=== PATIENT | male | born 1965 | race Caucasian/White ===

== ENCOUNTER 2016-09-28 14:12 | Outpatient (CLI) | payer OTHER ==
[~2016-09-28 14:12] MED LIST: ASPI-504 PO; GLIM2TAB PO; HYDR-1231 PO; LISI10TA2 PO; MTF500T PO; ROSU5TAB PO
--- OUTSIDE RECORDS SUMMARY | 2016-09-28 14:16 | XMS REPORT | Continuity of Care Document ---
Author Author [facility] Organization [facility] Address Unknown Phone Unavailable Care Team Providers Care Butcher Helper Name Role Phone AMBREEN RUST DO PCP Insurance Providers Payer Name Policy Number Subscriber Name Relationship [employer] [facility] [id number] Vipul Li 18 Self / Same As Patient Advance Directives Directive Response Recorded Date/Time Advance Directives No 04/14/14 3:29am Organ Donor Yes 04/14/14 3:29am Resuscitation Status Full Code 04/14/14 3:29am Problems Medical Problems Problem Onset Date Status Episcleritis of left eye Unknown Active Medications Medication Dose Route Sig Days/Qty Instructions Order Date Discontinued Date Status Lisinopril 20 Mg PO DAILY 11/18/13 Active Rosuvastatin Calcium 1 Each PO DAILY 11/18/13 Active Glimepiride 2 Mg PO DAILY 11/18/13 Active Aspirin 81 Mg PO DAILY 11/18/13 Active Hydrocodone Bit/Acetaminophen 1-2 Tab PO EVERY 6 HOURS PRN PAIN 30 Qty 11/18/13 04/14/14 Discontinued Metformin HCl (Glucophage) 1 Each PO TWICE A DAY WITH MEALS 04/14/14 Active Social History Social History Problem Response Recorded Date/Time Alcohol Use Occasionally Uses 04/14/2014 3:29am Recreational Drug Use No 04/14/2014 3:29am Recent Foreign Travel No 04/14/2014 3:29am Recent Infectious Disease Exposure No 04/14/2014 3:29am Smoking Status Never a Smoker 04/14/2014 3:29am Do you dip or chew tobacco? No 04/14/2014 3:29am Query Response Start Date Stop Date Smoking Status Never a Smoker Hospital Discharge Instructions No hospital discharge instructions. Plan of Care No plan of care. Functional Status No functional status results. Allergies, Adverse Reactions, Alerts Allergen Type Severity Reaction Status Last Updated No Known Drug Allergies Active 11/18/13 Immunizations Name Given Type Tetanus Booster (TDap) Less than 5yrs Historical Vital Signs Acute Vital Signs Vital Response Date/Time Temperature (Fahrenheit) 98.0 degrees F (97.6 - 99.5) Temperature (Calculated Celsius) 36.49320 degrees C (36.4 - 37.5) Temperature Source Temporal Pulse Rate (adult) 96 bpm (60 - 90) Respiratory Rate 16 bpm (12 - 24) O2 Sat by Pulse Oximetry 96 % (88 - 100) Blood Pressure 154/108 mm Hg Pain Pain Intensity 2 Height (Feet) 6 feet Height (Inches) 0 inches Height (Calculated Centimeters) 182.245656 cm Weight (Pounds) 240 pounds Weight (Calculated Kilograms) 108.098467 kilograms Calculated BMI 32.55 Results Test Source Date Result Interp. Ref. Range Comments Alanine Aminotransferase (ALT/SGPT) June 21, 2008 9:47am 69 U/L H 30 -65 Albumin June 21, 2008 9:47am 4.0 G/DL N 3.4-5.0 Alkaline Phosphatase June 21, 2008 9:47am 72 U/L N 50-136 Aspartate Amino Transf (AST/SGOT) June 21, 2008 9:47am 24 U/L N 15- 37 Cholesterol Level June 21, 2008 9:47am 122 MG/DL N -200 Direct Bilirubin June 21, 2008 9:47am 0.1 MG/DL N 0.0-0.30 Fasting Glucose June 21, 2008 9:47am 105 MG/DL N 70-110 HDL Cholesterol June 21, 2008 9:47am 50 MG/DL N 35-60 Indirect Bilirubin June 21, 2008 9:47am 0.4 MG/DL - LDL Cholesterol June 21, 2008 9:47am 64 MG/DL N 0-129 Total Bilirubin June 21, 2008 9:47am 0.5 MG/DL N 0.0-1.0 Total Protein June 21, 2008 9:47am 8.0 G/DL N 6.4-8.2 Triglycerides Level June 21, 2008 9:47am 39 MG/DL N 30.0-150.0 VLDL Cholesterol June 21, 2008 9:47am 8 MG/DL N 5-40 Procedures No known history of procedures. Encounters Encounter Location Date/Time Departed Emergency Room Via [facility] 04/14/14 3:21am Recent Diagnosis
== END 2016-09-28 14:35 ==
LOC: SLEEP 14:12
PROVIDERS: ATTEND Nurse Practitioner Family
DX: G47.50 Parasomnia, unspecified (principal); G47.10 Hypersomnia, unspecified; E11.9 Type 2 diabetes mellitus without complications

== ENCOUNTER 2017-04-21 02:42 | Observation (INO) | payer OTHER ==
[~2017-04-21] VITALS: Ht 180.3 cm; Wt 104.0 kg
[2017-04-21] MEDS ORDERED: NS IV 1000 ML 1,000 ML IV STA (02:59)
[2017-04-21] MEDS ORDERED: ANTACID SUSP 30 ML UDC (MYLANTA) PO ONE (03:00)
[2017-04-21] MEDS ORDERED: ASPIRIN 81 MG CHEW (CHILDREN'S ASA) PO ONE (03:00)
[2017-04-21] MEDS ORDERED: LIDOCAINE 2% VISCOUS 15 ML UDC PO ONE (03:00)
[2017-04-21 03:08] LABS: BASOPHILS # (AUTO) 0.1 10^3/uL (0.0-0.1); BASOPHILS % (AUTO) 0 % (0-10); EOSINOPHILS # (AUTO) 0.5 10^3/uL (0.0-0.3); EOSINOPHILS % (AUTO) 3 % (0-10); LYMPHOCYTES # (AUTO) 2.1 X 10^3 (1.0-4.0); LYMPHOCYTES % (AUTO) 14 % (12-44); MEAN CORPUSCULAR HEMOGLOBIN 30 PG (25-34); MEAN CORPUSCULAR HGB CONC 34 G/DL (32-36); MEAN CORPUSCULAR VOLUME 89 FL (80-99); MEAN PLATELET VOLUME 9.7 FL (7.4-10.4); MONOCYTES # (AUTO) 1.5 X 10^3 (0.0-1.0); MONOCYTES % (AUTO) 10 % (0-12); NEUTROPHILS # (AUTO) 11.2 X 10^3 (1.8-7.8); NEUTROPHILS % (AUTO) 73 % (42-75); PLATELET COUNT 310 10^3/uL (130-400); RED BLOOD COUNT 5.37 10^6/uL (4.35-5.85); RED CELL DISTRIBUTION WIDTH 12.7 % (10.0-14.5); WHITE BLOOD COUNT 15.3 10^3/uL (4.3-11.0)
[2017-04-21 03:09] LABS: PROTHROMBIN TIME PATIENT 12.9 SEC (12.2-14.7)
--- NOTE | 2017-04-21 03:09 | ED Chest Pain ---
General Chief Complaint: Chest Pain Stated Complaint: CHEST PAIN THROUGH TO BACK Source: patient Exam Limitations: no limitations History of Present Illness Time seen by provider: 02:45 Initial Comments Here with report of several days of diarrhea with occasional vomiting. Complains of low chest/epigastric pain that goes through to his back. Onset earlier this evening and wax and waned. Became quite severe about an hour ago and woke him up. Reports the hospital with the pain is improving. States he has not ate or drank much over the last few days due to GI upset and diarrhea. Timing/Duration: 1-3 hours Severity/Quality: moderate, aching, burning, dull Location: central Radiation: back, epigastric Activities at Onset: none Prior CP/Workup: no prior chest pain, no prior cardiac workup Modifying Factors: improves with rest ASA po SENIOR C SOFTWARE DEVELOPER: No NTG SL SENIOR C SOFTWARE DEVELOPER: No Associated Symptoms: abdominal pain, back pain, No fever/chills, No headache, nausea/vomiting, shortness of breath, No weakness Allergies and Home Medications Allergies Coded Allergies: No Known Drug Allergies (Unverified , 11/18/13) Home Medications Aspirin 81 Mg Tab.chew, 81 MG PO DAILY, (Reported) Glimepiride 2 Mg Tablet, 2 MG PO DAILY, (Reported) Lisinopril 10 Mg Tablet, 20 MG PO DAILY, (Reported) Metformin Hcl 500 Mg Tablet, 1 EACH PO BID WITH MEALS, (Reported) Rosuvastatin Calcium 5 Mg Tablet, 1 EACH PO DAILY, (Reported) Review of Systems Constitutional: see HPI, No chills, No fever Respiratory: See HPI, Shortness of Air, Denies Wheezing Cardiovascular: See HPI, Chest Pain Gastrointestinal: Diarrhea, Nausea, Vomiting Genitourinary: No Symptoms Reported Musculoskeletal: no symptoms reported All Other Systems Reviewed Negative Unless Noted: Yes Past Fkzllbm-Apbdus-Fvgrkx Hx Patient Social History Alcohol Use: Rarely Uses Recreational Drug Use: No Smoking Status: Never a Smoker Recent Foreign Travel: No Contact w/Someone Who Travel: No Immunizations Up To Date Tetanus Booster (TDap): Less than 5yrs Surgeries History of Surgeries: Yes Surgeries: Gallbladder Respiratory History of Respiratory Disorde: No Cardiovascular History of Cardiac Disorders: No Genitourinary History of Genitourinary Disor: No Gastrointestinal History of Gastrointestinal Di: Yes Gastrointestinal Disorders: Gall Bladder Disease Musculoskeletal History of Musculoskeletal Dis: No Endocrine History of Endocrine Disorders: Yes Endocrine Disorders: Diabetes, Non-Insulin dep Reviewed Nursing Assessment Reviewed/Agree w Nursing PMH: Yes Family Medical History Significant Family History: No Pertinent Family Hx Physical Exam Vital Signs Vital Sign - Last 12Hours 04/21/17 02:43 Temp 98.1 Pulse 105 Resp 20 B/P (MAP) 108/71 Pulse Ox 97 O2 Delivery Room Air Capillary Refill : General Appearance: WD/WN, Mild Distress HEENT: PERRL/EOMI, Normal ENT Inspection Neck: Non Tender, Supple Respiratory: Lungs Clear, Normal Breath Sounds Cardiovascular: No Murmur, Tachycardia Gastrointestinal: Non Tender, Soft Extremity: Normal Range of Motion, Non Tender Neurologic/Psychiatric: Alert, Oriented x3 Skin: Normal Color, Warm/Dry Progress/Results/Core Measures Results/Orders Lab Results Laboratory Tests Test 04/21/17 02:52 Range/Units White Blood Count 15.3 H 4.3-11.0 10^3/uL Red Blood Count 5.37 4.35-5.85 10^6/uL Hemoglobin 16.3 13.3-17.7 G/DL Hematocrit 48 40-54 % Mean Corpuscular Volume 89 80-99 FL Mean Corpuscular Hemoglobin 30 25-34 PG Mean Corpuscular Hemoglobin Concent 34 32-36 G/DL Red Cell Distribution Width 12.7 10.0-14.5 % Platelet Count 310 130-400 10^3/uL Mean Platelet Volume 9.7 7.4-10.4 FL Neutrophils (%) (Auto) 73 42-75 % Lymphocytes (%) (Auto) 14 12-44 % Monocytes (%) (Auto) 10 0-12 % Eosinophils (%) (Auto) 3 0-10 % Basophils (%) (Auto) 0 0-10 % Neutrophils # (Auto) 11.2 H 1.8-7.8 X 10^3 Lymphocytes # (Auto) 2.1 1.0-4.0 X 10^3 Monocytes # (Auto) 1.5 H 0.0-1.0 X 10^3 Eosinophils # (Auto) 0.5 H 0.0-0.3 10^3/uL Basophils # (Auto) 0.1 0.0-0.1 10^3/uL Prothrombin Time 12.9 12.2-14.7 SEC INR Comment 1.0 0.8-1.4 Activated Partial Thromboplast Time 28 24-35 SEC D-Dimer 1.00 H 0.00-0.49 UG/ML Sodium Level 134 L 135-145 MMOL/L Potassium Level 4.9 3.6-5.0 MMOL/L Chloride Level 105 98-107 MMOL/L Carbon Dioxide Level 16 L 21-32 MMOL/L Anion Gap 13 5-14 MMOL/L Blood Urea Nitrogen 38 H 7-18 MG/DL Creatinine 1.61 H 0.60-1.30 MG/DL Estimat Glomerular Filtration Rate 46 BUN/Creatinine Ratio 24 Glucose Level 193 H 70-105 MG/DL Calcium Level 9.3 8.5-10.1 MG/DL Magnesium Level 1.4 L 1.8-2.4 MG/DL Total Bilirubin 0.9 0.1-1.0 MG/DL Aspartate Amino Transf (AST/SGOT) 13 5-34 U/L Alanine Aminotransferase (ALT/SGPT) 22 0-55 U/L Alkaline Phosphatase 91 40-136 U/L Myoglobin 78.7 10.0-92.0 NG/ML Troponin I < 0.30 <0.30 NG/ML Total Protein 8.1 6.4-8.2 GM/DL Albumin 4.2 3.2-4.5 GM/DL Amylase Level 71 25-125 U/L Lipase 95 H 8-78 U/L My Orders Orders - RAPHAEL HERNANDEZ MD Cbc With Automated Diff (04/21/17 02:59) Magnesium (04/21/17 02:59) Chest 1 View, Ap/Pa Only (04/21/17 02:59) Ekg Tracing (04/21/17 02:59) Cardiac Profile 1 (04/21/17 02:59) Comprehensive Metabolic Panel (04/21/17 02:59) Myoglobin Serum (04/21/17 02:59) Protime With Inr (04/21/17 02:59) Partial Thromboplastin Time (04/21/17 02:59) O2 (04/21/17 02:59) Monitor-Rhythm Ecg Trace Only (04/21/17 02:59) Lipid Panel (04/22/17 06:00) Aspirin Chewable Tablet (Baby Aspirin Ch (04/21/17 03:00) Saline Lock/Iv-Start (04/21/17 02:59) Lipase (04/21/17 02:59) Amylase (04/21/17 02:59) Fibrin Degradation Products (04/21/17 02:59) Lidocaine 2% Viscous 15 Ml (Xylocaine Vi (04/21/17 03:00) Ns Iv 1000 Ml (Sodium Chloride 0.9%) (04/21/17 02:59) Antacid Suspension (Mylanta Suspension (04/21/17 03:00) Enoxaparin Injection (Lovenox Injection) (04/21/17 04:15) Medications Given in ED Current Medications Medications Dose Ordered Sig/Vanita Route Start Time Stop Time Status Last Admin Dose Admin Al Hydrox/Mg Hydrox/Simethicone 30 ml ONCE ONCE PO 04/21/17 03:00 04/21/17 03:02 DC 04/21/17 03:19 30 ML Aspirin 324 mg ONCE ONCE PO 04/21/17 03:00 04/21/17 03:02 DC 04/21/17 03:20 324 MG Enoxaparin Sodium 100 mg ONCE ONCE SC 04/21/17 04:15 04/21/17 04:16 DC 04/21/17 04:19 100 MG Lidocaine HCl 15 ml ONCE ONCE PO 04/21/17 03:00 04/21/17 03:02 DC 04/21/17 03:19 15 ML Vital Signs/I&O Vital Sign - Last 12Hours 04/21/17 04/21/17 02:43 02:43 Temp 98.1 Pulse 105 Resp 20 B/P (MAP) 108/71 Pulse Ox 97 O2 Delivery Room Air Room Air Progress Note : Progress Note Seen and evaluated. IV, labs, EKG and chest x-ray ordered. ASA 324 mg by mouth. GI cocktail ordered. Monitor patient. Pain is markedly improved after GI cocktail. 0414: D-dimer is elevated but so is serum creatinine. Has findings of acute renal failure which is likely related to dehydration from vomiting and diarrhea. Patient did receive 1 L of normal saline and heart rate has not decreased much remains in the 90s. Still concerns for PE and d-dimer did not decrease this concerned. Unable to do a CT angiogram due to elevated serum creatinine. Patient also presented with chest pain. Troponin is negative. Due to all these concerns, patient will need to be admitted for further evaluation and monitoring for improvement of renal function. To mitigate PE concerns, Lovenox 1 mg/kg IM given times one now and we will get a VQ scan in the morning. Serial testing related to chest pain will be performed. We will continue fluids IV and maintain patient on clear liquid diet. Protonix 40 mg IV ordered due to reflux concerns. Patient did have mild elevation of lipase which is likely related to the vomiting and diarrhea but will be monitored. All findings and concerns discussed with Dr. Hawkins who agrees. Patient and family informed and agree with plan. 0440: Patient and family nonformulary that they do have an established relationship with Dr. Love and not just the [facility]. I will transfer the admission over to Dr. Love. 0450: I did discuss the case with Dr. Love and he agrees to all of the above plan. He will get VQ scan between 10 a.m. and noon today. Single dose Lovenox coverage will be adequate until VQ scan results are noted. ECG Initial ECG Impression Date: Apr 21, 2017 Initial ECG Impression Time: 02:47 Initial ECG Rate: 96 Initial ECG Rhythm: S.Tach Comment Sinus tachycardia with rate of 96. Normal axis. No evidence of ST elevation HI. No previous available for comparison. Interpreted by me. Diagnostic Imaging Diagonstic Imaging: Xray Plain Films/CT/US/NM/MRI: chest Comments No acute findings Departure Communication (Admissions) Time/Spoke to Admitting Phy: 04:14 Impression Impression: Primary Impression: Chest pain Qualified Codes: R07.9 - Chest pain, unspecified Additional Impressions: Acute renal failure Qualified Codes: N17.9 - Acute kidney failure, unspecified Dehydration Elevated d-dimer Disposition: ADMITTED INPATIENT Condition: Stable Admissions Decision to Admit Reason: Admit from ER (General) Decision to Admit/Date: Apr 21, 2017 Time/Decision to Admit Time: 04:14 Departure-Patient Inst. Referrals: OTHER,UNLISTED (PCP) Primary Care Physician SEAN WAGNER APRN (Family) Primary Care Physician RAPHAEL HERNANDEZ MD Apr 21, 2017 03:09
[2017-04-21 03:22] LABS: ALANINE AMINOTRANSFERASE 22 U/L (0-55); ALBUMIN 4.2 GM/DL (3.2-4.5); AMYLASE 71 U/L (25-125); ANION GAP 13 MMOL/L (5-14); ASPARTATE AMINO TRANSFERASE 13 U/L (5-34); BILIRUBIN,TOTAL 0.9 MG/DL (0.1-1.0); BLOOD UREA NITROGEN 38 MG/DL (7-18); BUN/CREATININE RATIO 24; CALCIUM 9.3 MG/DL (8.5-10.1); CARBON DIOXIDE 16 MMOL/L (21-32); CHLORIDE 105 MMOL/L (98-107); CREATININE SERUM 1.61 MG/DL (0.60-1.30); GFR ESTIMATED 46; GLUCOSE 193 MG/DL (70-105); LIPASE 95 U/L (8-78); MAGNESIUM 1.4 MG/DL (1.8-2.4); POTASSIUM 4.9 MMOL/L (3.6-5.0); SODIUM 134 MMOL/L (135-145); TOTAL PROTEIN 8.1 GM/DL (6.4-8.2)
[2017-04-21 03:29] LABS: MYOGLOBIN SERUM 78.7 NG/ML (10.0-92.0)
[2017-04-21] MEDS ORDERED: ENOXAPARIN 100 MG/1 ML (LOVENOX) SYR SC ONE (04:15)
[2017-04-21 05:18] VITALS: BP 117/66
[2017-04-21] MEDS ORDERED: NITROGLYCERIN SUBLINGUAL 0.4 MG TAB (NITROSTAT) SL PRN (05:45)
[2017-04-21] MEDS ORDERED: ONDANSETRON 4 MG/2 ML (SDV) Z0FRAN IV PRN (05:45)
[2017-04-21] MEDS ORDERED: morphine INJ 4 MG/ML 1 ML (VIAL/SYRINGE) IV PRN (05:45)
[2017-04-21] MEDS: NS IV 1000 ML 1,000 ML IV SCH ×3 (05:53→19:38)
--- NOTE | 2017-04-21 07:28 | Diagnostic Imaging Report ---
INDICATION: Chest pain. COMPARISON: None. FINDINGS: Upright portable view of the chest is obtained. Heart size is normal. The pulmonary vessels appear unremarkable. There is no pneumothorax, mediastinal widening or pleural fluid. Lungs are clear. IMPRESSION: Negative chest. Dictated by: Dictated on workstation # [id number]
[2017-04-21 08:00] VITALS: BP 127/90
--- NOTE | 2017-04-21 08:15 | History & Physicial ---
History of Present Illness History of Present Illness Reason for visit/HPI patient came out to the emergency room due to having chest pain. Chest pain woke him at 2 o'clock in the morning and had a hard time breathing . Since last Monday patient has been having diarrhea. Patient also had a few episodes of vomiting. Patient is a known diabetic, hyperlipidemia and hypertension. Patient admitted Date of Admission Apr 21, 2017 at 4:18 am Time Seen by Provider: 08:10 I consulted on this patient on 04/21/17 08:11 Attending Physician Fabián Rust DO Admitting Physician Other,Unlisted Consult Allergies and Home Medications Allergies Coded Allergies: No Known Drug Allergies (Unverified , 11/18/13) Home Medications Aspirin 81 Mg Tab.chew, 81 MG PO DAILY, (Reported) Glimepiride 2 Mg Tablet, 2 MG PO DAILY, (Reported) Lisinopril 10 Mg Tablet, 20 MG PO DAILY, (Reported) Metformin Hcl 500 Mg Tablet, 1 EACH PO BID WITH MEALS, (Reported) Rosuvastatin Calcium 5 Mg Tablet, 1 EACH PO DAILY, (Reported) Past Iafkipj-Firhpl-Rrkost Hx Patient Social History Marrital Status: Employed/Student: employed Alcohol Use: Occasionally Uses Number of Drinks Today: 1 Alcohol Beverage of Choice: Wine Recreational Drug Use: No Smoking Status: Never a Smoker 2nd Hand Smoke Exposure: No Physical Abuse Screen: No Sexual Abuse: No Recent Foreign Travel: No Contact w/other who traveled: Yes Recent Hopitalizations: No Recent Infectious Disease Expo: No Immunizations Up To Date Tetanus Booster (TDap): Less than 5yrs Pediatric: No Seasonal Allergies Seasonal Allergies: No Surgeries Yes Gallbladder Respiratory No Cardiovascular Yes Hypertension Neurological No Genitourinary No Gastrointestinal No Gall Bladder Disease Musculoskeletal No Endocrine History of Endocrine Disorders: Yes Endocrine Disorders: Diabetes, Non-Insulin dep Are Your Blood Sugars Over 250: No HEENT History of HEENT Disorders: No Cancer No Psychosocial History of Psychiatric Problem: No Integumentary History of Skin or Integumenta: No Blood Transfusions History of Blood Disorders: No Adverse Reaction to a Blood Tr: No Reviewed Nursing Assessment Reviewed/Agree w Nursing PMH: Yes Family Medical History Significant Family History: No Pertinent Family Hx Family Hx: Patient reports no known family medical history. Constitutional: no symptoms reported EENTM: no symptoms reported Respiratory: other (difficulty in breathing) Cardiovascular: chest pain Gastrointestinal: diarrhea, other (some vomiting) Genitourinary: no symptoms reported Physical Exam Vital Signs Vital Sign - Last 12Hours 04/21/17 02:43 Temp 98.1 Pulse 105 Resp 20 B/P (MAP) 108/71 Pulse Ox 97 O2 Delivery Room Air Capillary Refill : Less Than 3 Seconds General Appearance: No Apparent Distress, WD/WN Eyes: Bilateral Eye Normal Inspection HEENT: Normal ENT Inspection Neck: Full Range of Motion, Normal Inspection, Non Tender Respiratory: Chest Non Tender, No Accessory Muscle Use, No Respiratory Distress Cardiovascular: Regular Rate, Rhythm, No Murmur Gastrointestinal: Non Tender, Soft Assessment/Plan Assessment and Plan chest pain. Acute renal failure. Dehydration. Diarrhea. Elevated d-dimer Problems: Clinical Quality Measures AMI/AHF: ASA po Prior to arrival: No DVT/VTE Risk/Contraindication: Risk Factor Score Per Nursin RFS Level Per Nursing on Admit: 3=High FABIÁN RUST DO Apr 21, 2017 8:15 am
[2017-04-21 08:59] LABS: MEAN PLATELET VOLUME 9.7 FL (7.4-10.4); RED BLOOD COUNT 5.04 10^6/uL (4.35-5.85); RED CELL DISTRIBUTION WIDTH 12.9 % (10.0-14.5); WHITE BLOOD COUNT 10.6 10^3/uL (4.3-11.0)
[2017-04-21] MEDS: ASPIRIN E.C. 325 MG (ECOTRIN) TABLET PO SCH (09:08)
[2017-04-21] MEDS: PANTOPRAZOLE 40 MG/10 ML (PROTONIX) VIAL IV SCH (09:08)
[2017-04-21 09:27] LABS: ANION GAP 9 MMOL/L (5-14); BLOOD UREA NITROGEN 33 MG/DL (7-18); BUN/CREATININE RATIO 27; CALCIUM 8.4 MG/DL (8.5-10.1); CARBON DIOXIDE 17 MMOL/L (21-32); CHLORIDE 109 MMOL/L (98-107); CREATININE SERUM 1.23 MG/DL (0.60-1.30); GFR ESTIMATED > 60; GLUCOSE 108 MG/DL (70-105); POTASSIUM 4.5 MMOL/L (3.6-5.0); SODIUM 135 MMOL/L (135-145)
[2017-04-21] MEDS ORDERED: ROSU20TA28 PO (09:42)
[2017-04-21] MEDS ORDERED: METO-333 PO (09:42)
[2017-04-21] MEDS ORDERED: LISI-552 PO (09:42)
[2017-04-21] MEDS ORDERED: LIRA0.6P SC (09:42)
[2017-04-21] MEDS ORDERED: METF1000 PO (09:47)
[2017-04-21] MEDS ORDERED: DIPH1TAB25 PO (09:47)
--- NOTE | 2017-04-21 09:51 | Consultation-Cardiology ---
HPI-Cardiology Cardiology Consultation Date of Consultation 04/21/17 Date of Admission Time Seen by Provider: 09:47 Indication: Chest pain HPI 51 years old gentleman with history of hypertension, hyperlipidemia and diabetes mellitus. Was in his usual state of health, for the last week he has been having diarrhea and GI upset, around 2 in the morning woke up with lower retrosternal chest pain and upper epigastric pain was persistent associated with shortness of breath. Came into the emergency room and improved. No nausea or vomiting. No further episode of pain. Currently feeling better, denied any abdominal pain or chest pain. No similar episode in the past. Denied any dizziness or lightheadedness. No syncope. Home Medications & Allergies Allergies: Coded Allergies: No Known Drug Allergies (Unverified , 11/18/13) Home Medication List Reviewed: Yes BIZ-Wxhsmn-Aygrtt Hx Patient Social History Marital Status: Employed/Student: employed Alcohol Use: Occasionally Uses Recreational Drug Use: No Smoking Status: Never a Smoker 2nd Hand Smoke Exposure: No Recent Foreign Travel: No Recent Infectious Disease Expo: No Recent Hopitalizations: No Physical Abuse Screen: No Sexual Abuse: No Immunizations Up To Date Tetanus Booster (TDap): Less than 5yrs Past Medical History past medical history as discussed below Family Medical History Significant Family History: No Pertinent Family Hx Family History: Patient reports no known family medical history. Constitutional: see HPI, malaise EENTM: see HPI, no symptoms reported Respiratory: see HPI, No cough, No dyspnea on exertion, No hemoptysis, No orthopnea, No phlegm, short of breath, No stridor, No wheezing, No other Cardiovascular: see HPI, chest pain, No edema, No Hx of Intervention, No palpitations, No syncope, No vascular heart diseas, No other Gastrointestinal: see HPI, abdominal pain, diarrhea Genitourinary: no symptoms reported, see HPI Musculoskeletal: see HPI Skin: no symptoms reported, see HPI Psychiatric/Neurological: No Symptoms Reported, See HPI Reviewed Test Results Reviewed Test Results Lab Laboratory Tests Test 04/21/17 02:52 04/21/17 08:46 Range/Units White Blood Count 15.3 H 10.6 4.3-11.0 10^3/uL Red Blood Count 5.37 5.04 4.35-5.85 10^6/uL Hemoglobin 16.3 15.4 13.3-17.7 G/DL Hematocrit 48 46 40-54 % Mean Corpuscular Volume 89 90 80-99 FL Mean Corpuscular Hemoglobin 30 31 25-34 PG Mean Corpuscular Hemoglobin Concent 34 34 32-36 G/DL Red Cell Distribution Width 12.7 12.9 10.0-14.5 % Platelet Count 310 258 130-400 10^3/uL Mean Platelet Volume 9.7 9.7 7.4-10.4 FL Neutrophils (%) (Auto) 73 42-75 % Lymphocytes (%) (Auto) 14 12-44 % Monocytes (%) (Auto) 10 0-12 % Eosinophils (%) (Auto) 3 0-10 % Basophils (%) (Auto) 0 0-10 % Neutrophils # (Auto) 11.2 H 1.8-7.8 X 10^3 Lymphocytes # (Auto) 2.1 1.0-4.0 X 10^3 Monocytes # (Auto) 1.5 H 0.0-1.0 X 10^3 Eosinophils # (Auto) 0.5 H 0.0-0.3 10^3/uL Basophils # (Auto) 0.1 0.0-0.1 10^3/uL Prothrombin Time 12.9 12.2-14.7 SEC INR Comment 1.0 0.8-1.4 Activated Partial Thromboplast Time 28 24-35 SEC D-Dimer 1.00 H 0.00-0.49 UG/ML Sodium Level 134 L 135 135-145 MMOL/L Potassium Level 4.9 4.5 3.6-5.0 MMOL/L Chloride Level 105 109 H 98-107 MMOL/L Carbon Dioxide Level 16 L 17 L 21-32 MMOL/L Anion Gap 13 9 5-14 MMOL/L Blood Urea Nitrogen 38 H 33 H 7-18 MG/DL Creatinine 1.61 H 1.23 0.60-1.30 MG/DL Estimat Glomerular Filtration Rate 46 > 60 BUN/Creatinine Ratio 24 27 Glucose Level 193 H 108 H 70-105 MG/DL Calcium Level 9.3 8.4 L 8.5-10.1 MG/DL Magnesium Level 1.4 L 1.8-2.4 MG/DL Total Bilirubin 0.9 0.1-1.0 MG/DL Aspartate Amino Transf (AST/SGOT) 13 5-34 U/L Alanine Aminotransferase (ALT/SGPT) 22 0-55 U/L Alkaline Phosphatase 91 40-136 U/L Myoglobin 78.7 10.0-92.0 NG/ML Troponin I < 0.30 <0.30 NG/ML Total Protein 8.1 6.4-8.2 GM/DL Albumin 4.2 3.2-4.5 GM/DL Amylase Level 71 25-125 U/L Lipase 95 H 8-78 U/L Physical Exam Vital Signs Vital Sign - Last 12Hours 04/21/17 02:43 Temp 98.1 Pulse 105 Resp 20 B/P (MAP) 108/71 Pulse Ox 97 O2 Delivery Room Air Capillary Refill : Less Than 3 Seconds General Appearance: No Apparent Distress, WD/WN Eyes: Bilateral Eye Normal Inspection, Bilateral Eye PERRL, Bilateral Eye EOMI HEENT: PERRL/EOMI, TMs Normal, Normal ENT Inspection, Pharynx Normal Neck: Full Range of Motion, Normal Inspection, Non Tender, Supple, Carotid Bruit Respiratory: Chest Non Tender, Lungs Clear, Normal Breath Sounds, No Accessory Muscle Use, No Respiratory Distress Cardiovascular: Regular Rate, Rhythm, No Edema, No Gallop, No JVD, No Murmur, Normal Peripheral Pulses Gastrointestinal: Normal Bowel Sounds, No Organomegaly, No Pulsatile Mass, Non Tender, Soft Back: Normal Inspection, No CVA Tenderness, No Vertebral Tenderness Extremity: Normal Capillary Refill, Normal Inspection, Normal Range of Motion, Non Tender, No Calf Tenderness, No Pedal Edema Neurologic/Psychiatric: Alert, Oriented x3, No Motor/Sensory Deficits, Normal Mood/Affect Skin: Normal Color, Warm/Dry Lymphatic: No Adenopathy A/P-Cardiology Admission Diagnosis Chest pain, nonspecific etiology Hypertension Hyperlipidemia Diabetes mellitus Assessment/Plan Chest pain nonspecific etiology, atypical in presentation, multiple risk factors for coronary artery disease, cardiac enzymes were normal. I will evaluate exercise stress test and echocardiogram. Hypertension, controlled, restart home medication monitor blood pressure Hyperlipidemia, keep on hold for now while having GI upset. Need to be restarted on his lipid medicine Diabetes mellitus, followed and managed by primary care physician Diarrhea for the last week. Some electrolyte abnormality especially with hypomagnesemia, replace magnesium and monitor closely. Mild elevation lipase level, normal amylase. Currently asymptomatic. Continue to monitor Clinical Quality Measures AMI/AHF: ASA po Prior to arrival: No DVT/VTE Risk/Contraindication: Risk Factor Score Per Nursin RFS Level Per Nursing on Admit: 3=High VIOLETA CONTRERAS MD Apr 21, 2017 09:51
[2017-04-21 12:00] VITALS: BP 123/72
[2017-04-21] MEDS: MAGNESIUM 1 GM/100 ML IVPB 100 ML IV SCH ×2 (13:02→14:43)
--- NOTE | 2017-04-21 13:04 | Diagnostic Imaging Report ---
INDICATION: Elevated D-dimer. Ventilation/perfusion lung scan. 40.6 mCi of Tc99m DTPA was used for the ventilation scan. 5.32 mCi of Tc99m MAA was used for the perfusion scan. There is homogeneous activity in both lungs on ventilation and perfusion phases of the study. IMPRESSION: Negative ventilation/perfusion lung scan. Dictated by: Dictated on workstation # [id number]
[2017-04-21 16:00] VITALS: BP 99/71
[2017-04-21 20:00] VITALS: BP 104/68
[2017-04-21 22:27] VITALS: BP 104/68
[2017-04-22] VITALS: BP 95/62
[2017-04-22] MEDS: NS IV 1000 ML 1,000 ML IV SCH ×2 (02:30→06:17)
[2017-04-22 04:00] VITALS: BP 97/55
[2017-04-22 06:38] LABS: MEAN PLATELET VOLUME 9.8 FL (7.4-10.4); RED BLOOD COUNT 4.69 10^6/uL (4.35-5.85); RED CELL DISTRIBUTION WIDTH 12.7 % (10.0-14.5)
[2017-04-22 06:51] LABS: AMYLASE 65 U/L (25-125); CHOLESTEROL 82 MG/DL (< 200); DIRECT LDL 44 MG/DL (1-129); LIPASE 100 U/L (8-78); TRIGLYCERIDES 102 MG/DL (<150); VLDL CHOLESTEROL 20 MG/DL (5-40)
[2017-04-22 06:53] LABS: ALANINE AMINOTRANSFERASE 18 U/L (0-55); ALBUMIN 3.4 GM/DL (3.2-4.5); ANION GAP 7 MMOL/L (5-14); ASPARTATE AMINO TRANSFERASE 9 U/L (5-34); BILIRUBIN,TOTAL 0.7 MG/DL (0.1-1.0); BLOOD UREA NITROGEN 23 MG/DL (7-18); BUN/CREATININE RATIO 25; CALCIUM 8.1 MG/DL (8.5-10.1); CARBON DIOXIDE 19 MMOL/L (21-32); CHLORIDE 109 MMOL/L (98-107); CREATININE SERUM 0.93 MG/DL (0.60-1.30); GFR ESTIMATED > 60; GLUCOSE 110 MG/DL (70-105); POTASSIUM 4.2 MMOL/L (3.6-5.0); SODIUM 135 MMOL/L (135-145); TOTAL PROTEIN 6.3 GM/DL (6.4-8.2)
[2017-04-22 08:00] VITALS: BP 121/76
[2017-04-22] MEDS: PANTOPRAZOLE 40 MG/10 ML (PROTONIX) VIAL IV SCH (09:32)
[2017-04-22] MEDS: ASPIRIN E.C. 325 MG (ECOTRIN) TABLET PO SCH (09:32)
--- NOTE | 2017-04-22 11:13 | Progress Note-Hospitalist ---
Progress Note Progress Notes/Assess & Plan Date Seen 04/22/17 Time Seen by Provider: 10:45 Diagonsis/Assessment & Plan Pt feels much better since the IVF given and renal insufficiency has resolved. He does have Lomotil at home that he takes and having no new issues with that We counseled him on maintenance of oral fluids to prevent dehydration again No fever, vital signs stable, pleasant Regular rate rhythm, clear to auscultation bilaterally No edema Family bedside Assessment: Chest pain of uncertain etiology but noncardiac in origin we'll follow-up with Dr. 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
--- NOTE | 2017-04-22 11:23 | Cardiology Progress Note ---
Subjective Date Seen by Provider: Apr 22, 2017 Time Seen by Provider: 11:21 Subjective/Events-last exam patient is laying down in bed, feeling better, still having some loose stool, about 2 bowel movements today. No abdominal pain or chest pain Review of Systems General: No Chills, No Night Sweats, No Fatigue, No Malaise, No Appetite, No Other HEENT: No Head Aches, No Visual Changes, No Eye Pain, No Ear Pain, No Dysphasia , No Sinus Congestion, No Post Nasal Drip, No Sore Throat, No Other Pulmonary: No Dyspnea, No Cough, No Pleuritic Chest Pain, No Other Cardiovascular: No: Chest Pain, Palpitations, Orthopnea, Paroxysmal Noc. Dyspnea, Edema, Lt Headedness, Other Objective-Cardiology Exam Last Set of Vital Signs Vital Signs 04/22/17 08:00 Temp 96.4 Pulse 93 Resp 18 B/P (MAP) 121/76 Pulse Ox 98 O2 Delivery Room Air Capillary Refill : Less Than 3 Seconds I&O Intake and Output 04/23/17 00:00 Intake Total 1200 ml Balance 1200 ml Intake Oral 200 ml IV Total 1000 ml # Voids 2 General: Alert, Oriented X3, Cooperative HEENT: Atraumatic, PERRLA Neck: Supple, No JVD, No Thyromegaly Lungs: Clear to Auscultation, Normal Air Movement Heart: Regular Rate, Normal S1, Normal S2, No Murmurs Abdomen: Normal Bowel Sounds, Soft, No Tenderness, No Hepatosplenomegaly, No Masses Extremities: No Clubbing, No Cyanosis, No Edema, Normal Pulses, No Tenderness/ Swelling Skin: No Rashes, No Breakdown, No Significant Lesion Neuro: Normal Gait, Normal Speech, Strength at 5/5 X4 Ext, Normal Tone, Sensation Intact Psych/Mental Status: Mental Status NL, Mood NL Results Lab Laboratory Tests 04/22/17 06:20 A/P-Cardiology Admission Diagnosis Chest pain, nonspecific etiology Hypertension Hyperlipidemia Diabetes mellitus Assessment/Plan Chest pain nonspecific etiology, atypical in presentation, exercise stress echo showed good exercise tolerance for a total of 9 minutes and 30 seconds on standard [place] protocol. No EKG changes and normal echocardiographic images at rest and with peak stress level. Patient was reassured. Chest pain is probably noncardiac in nature Hypertension, controlled, Continue on current medications and monitor Hyperlipidemia, keep on hold for now while having GI upset. Diabetes mellitus, followed and managed by primary care physician Diarrhea for the last week. Some electrolyte abnormality especially with hypomagnesemia, better today. Continue to monitor. Acute renal insufficiency secondary to dehydration, improved with IV fluid. Continue to monitor Mild elevation lipase level, normal amylase, probably secondary to gastroenteritis. Currently asymptomatic. Continue to monitor Clinical Quality Measures AMI/AHF: ASA po Prior to arrival: No DVT/VTE Risk/Contraindication: Risk Factor Score Per Nursin RFS Level Per Nursing on Admit: 3=High VIOLETA CONTRERAS MD Apr 22, 2017 11:23
[2017-04-22 11:52] VITALS: BP 121/76
--- NOTE | 2017-04-22 21:40 | STRESS TEST ---
DATE OF SERVICE: 04/21/2017 EXERCISE STRESS ECHOCARDIOGRAM. Baseline heart rate is 98. Baseline blood pressure 104/79 baseline EKG is sinus rhythm with no ischemic changes. In summary, the patient started exercising with a baseline heart rate, blood pressure and EKG mentioned above. He was able to exercise for a total of 9 minutes and 30 seconds on standard [place] protocol, achieving maximum heart rate of 161, which is 94% of maximum expected heart rate. With peak exercise level blood pressure was 171/77. EKG was showing minimal nondiagnostic changes. During recovery, heart rate and blood pressure returned to baseline. EKG returned to baseline. Echocardiographic images were acquired and reviewed in the parasternal long axis, parasternal short axis, apical four chamber and apical two chamber views. Review of the images showed normal left ventricular size with normal contractility with no ischemic changes. CONCLUSION: 1. Good exercise tolerance, a total of 9 minutes 30 seconds on standard [place] protocol, total of 11.1 METS achieving 94% of maximum expected heart rate. 2. Appropriate heart rate and blood pressure response to exercise returned to baseline during recovery. 3. Minimal nondiagnostic EKG changes with exercise returned to baseline during recovery. 4. Normal echocardiographic images at rest and with peak stress images with no ischemic changes. Job ID: [id number] DocumentID: [id number] Dictated Date: 04/22/2017 10:49:32 Muffler Tender Date: 04/22/2017 13:09:43 Dictated By: VIOLETA CONTRERAS MD
--- NOTE | 2017-04-24 07:21 | Clinic Account Progress/Dx ---
Clinic Account Progress/Dx DIAGNOSIS: Time Seen by Provider: 07:20 Diagnosis chest pain noncardiac. Dehydration. Acute renal insufficiency. Hypertension. Hyperlipidemia. Mild lipase elevation AMBREEN RUST DO Apr 24, 2017 07:21
== END 2017-04-22 11:09 | disposition home or self-care (01) ==
LOC: EDUNIT# 02:42 → ER 02:43 → UNDOADMOB 04:18 → 4TH 04:18 → UNDODISOB 04-22 11:52
PROVIDERS: ADMIT Family Medicine; ATTEND Family Medicine
DX: R07.9 Chest pain, unspecified (principal); R19.7 Diarrhea, unspecified; E86.0 Dehydration; N17.9 Acute kidney failure, unspecified; R10.13 Epigastric pain; I10 Essential (primary) hypertension; E78.5 Hyperlipidemia, unspecified; E11.9 Type 2 diabetes mellitus without complications; Z79.82 Long term (current) use of aspirin; Z79.84 Long term (current) use of oral hypoglycemic drugs; Z79.899 Other long term (current) drug therapy
CPT/HCPCS: 36415; 71010; 78582; 80048; 80053; 80061; 82150; 82962; 83690; 83735; 83874; 84484; 85025; 85027; 85379; 85610; 85730; 93005; 93041; 93306; 93351; 96360; 96372; G0378